=== PATIENT | male | born 1965 | race Caucasian/White ===

== ENCOUNTER 2016-12-29 05:32 | Inpatient (IN) | payer BC ==
[2016-12-21 13:42] LABS: URINE BILIRUBIN NEGATIVE (Negative); URINE BLOOD NEGATIVE (Negative); URINE COLOR YELLOW; URINE GLUCOSE-RANDOM* NEGATIVE (Negative); URINE KETONES TRACE (Negative); URINE LEUKOCYTES-REFLEX NEGATIVE (Negative); URINE PROTEIN (DIPSTICK) NEGATIVE (Negative); URINE SPECIFIC GRAVITY 1.025 (1.003-1.035); URINE UROBILINOGEN 0.2 E.U./dl (0.2-1.0)
[2016-12-21 13:44] LABS: HEMATOCRIT 49.4 % (42.0-52.0); HEMOGLOBIN 16.8 gm/dL (14.0-18.0); MCH 30.8 pg (26.0-34.0); MCV 90.4 fL (80.0-100.0); RBC 5.46 mil/uL (4.50-6.00); RDW 14.3 % (10.5-14.5); WBC 7.3 thou/uL (4.0-11.0)
[2016-12-21 13:53] LABS: ALBUMIN 3.9 g/dL (3.4-5.0); CALCIUM 9.3 mg/dL (8.5-10.1); CREATININE 0.9 mg/dL (0.7-1.3); POTASSIUM 4.6 mmol/L (3.5-5.1)
[2016-12-21 13:57] LABS: PROTIME 10.4 Seconds (9.3-11.4)
[2016-12-29] VITALS (10 sets, daily range): BP systolic 125–158; BP diastolic 71–94
[~2016-12-29] VITALS: Ht 193 cm; Wt 121.6 kg
--- NOTE | ~2016-12-29 | O ---
[facility] [place] [address] OPERATIVE REPORT Name: ROMELIA VICENTE Room #: 150-9 ADM IN M.R.#: [id number] Admission: 12/29/16 Attend Phys: John Newton MD Discharge: Date of : 67 Report #: [id number] THIS REPORT FOR: //name// CC: John Newton DATE OF SERVICE: 12/29/2016 PREOPERATIVE DIAGNOSIS: Right knee degenerative joint disease, severe. Obesity, BMI 33.47. POSTOPERATIVE DIAGNOSIS: Right knee degenerative joint disease, severe. Obesity, BMI 33.47. PROCEDURE: Right total knee arthroplasty. SURGEON: John Newton MD. STILL OPERATOR: MONSERRAT Mays. INDICATIONS FOR STILL OPERATOR: During the course of operation, extensive manipulation, retraction and limb positioning were required. This was especially important due to the patient's size, which did require additional time. ANESTHETIC: General. INDICATIONS: See hospital H and P. IMPLANTS UTILIZED: Used a [employer] knee system. We used a cruciate retaining press-fit femur, size 8. We used a Rosalba 2 tibial base plate with an 11 mm spacer and a 38 mm patella. DESCRIPTION OF PROCEDURE: After adequate general anesthesia had been obtained, the patient's right lower extremity was prepped and draped in the usual meticulous sterile fashion. Limb was exsanguinated with gravity, tourniquet inflated to 350 torr. Anterior midline incision was made, subQ divided sharply. Hemostasis obtained with electrocautery. Medial parapatellar incision was made. Infrapatellar fat pad excised. We released the capsule at the level of joint only medially for exposure. The knee was flexed, the drill was used to drill the distal femur. This hole was enlarged, irrigated, suctioned, and the intramedullary guide placed the full length of the femur, the 7 degree valgus matched the patient's anatomy. We placed it in appropriate rotation and pinned it into position, and the distal femoral cut was made. We did elect to take additional 2 mm due to the patient's flexion contracture. We then measured the [facility] [address] [place] [address] OPERATIVE REPORT Name: ROMELIA VICENTE Room #: 150-9 ADM IN M.R.#: [id number] Admission: 12/29/16 Attend Phys: John Newton MD Discharge: Date of : 67 Report #: [id number] femur, size 8 was appropriate size. We marked the distal femur, impacted the cutting guide into place and the anterior, posterior and chamfer cuts were made. Rongeur was used to remove additional osteophytes. At this time, the ACL was transected, tibia translated anteriorly, menisci were excised. Drill was used to drill central portion of the tibia. This hole was enlarged, irrigated, suctioned, and the intramedullary guide placed the full length of the tibia. Proximal tibial cutting guide placed at appropriate height. Proximal tibia cut was made. 5 tray gave us the best coverage on the tibia. We then placed trial components in position with 11 spacer, we had the best flexion and extension gap. Patella was measured, cutting guide clamped into place, patellar cut was made. PEG holes were drilled, trial component put in position. It tracked normally. The knee was taken through several cycles of flexion and extension. Tibial tray rotation was marked. We then punched the distal femur and then did the tibial keel cut. We then irrigated the knee copiously with pulse lavage and antibiotic irrigation. The cement was vacuum mixed, and when it reached the appropriate consistency, the knee was thoroughly dried, the tibial tray was cemented in place. Excess cement was removed. The spacer was impacted in place and the femur impacted in place. The knee was taken out of the 0 degrees flexion, uniform compression placed across components. Patellar button was then cemented into place and again excess cement was removed. We allowed the cement to fully cure. When it had done so, we irrigated, dried thoroughly and inspected. Drains were placed superolaterally both deep and superficial. The retinacular layer closed with combination of interrupted [id number] #1 Vicryl as well as running #1 Tevdek. SubQ closed with 2-0 Monocryl, skin closed with danika. Sterile compressive dressing applied. Tourniquet deflated. By: [phone] John Newton MD /nt
[~2016-12-29 05:32] MED LIST: ALLOPURINOL 30300 M1 PO; ALLOPURINOL PO; DEPO-TESTO100 MG/1 M IM; IBUPROFEN 200200 M1 PO; IBUPROFEN 800800 M1 PO; MITIGARE0.6 MG PO; STEROID SHOT IM; SYNTHROID75 MCG PO
[2016-12-29 11:02] LABS: PROTIME 10.3 Seconds (9.3-11.4)
[2016-12-30 00:33] VITALS: BP 124/66
[2016-12-30 03:03] VITALS: BP 133/74
[2016-12-30 06:24] LABS: HEMATOCRIT 43.5 % (42.0-52.0); HEMOGLOBIN 14.5 gm/dL (14.0-18.0); MCH 30.2 pg (26.0-34.0); MCHC 33.3 g/dL (28.0-37.0); MCV 90.7 fL (80.0-100.0); RBC 4.8 mil/uL (4.50-6.00); RDW 14.1 % (10.5-14.5); WBC 10.8 thou/uL (4.0-11.0)
[2016-12-30 08:00] VITALS: BP 135/73
[2016-12-30 15:51] VITALS: BP 136/76
[2016-12-30 19:56] VITALS: BP 153/87
[2016-12-31 03:32] LABS: HEMATOCRIT 41.8 % (42.0-52.0); MCH 30.5 pg (26.0-34.0); MCHC 33.5 g/dL (28.0-37.0); RBC 4.59 mil/uL (4.50-6.00); RDW 14.2 % (10.5-14.5); WBC 9.8 thou/uL (4.0-11.0)
[2016-12-31 03:35] VITALS: BP 145/75
[2016-12-31 03:42] LABS: CALCIUM 8.1 mg/dL (8.5-10.1); MAGNESIUM 1.8 mg/dL (1.8-2.4); POTASSIUM 4.1 mmol/L (3.5-5.1)
[2016-12-31] MEDS ORDERED: XARELTO10 MG PO (06:43)
[2016-12-31] MEDS ORDERED: PERCOCET 10-321 EACH PO (06:43)
[2016-12-31] MEDS ORDERED: MS CONTIN15 MG PO (06:43)
[2016-12-31] MEDS ORDERED: CELEBREX 200 M200 M1 PO (06:48)
[2016-12-31 08:31] VITALS: BP 133/71
[2016-12-31 16:00] VITALS: BP 132/64
[2016-12-31 19:20] VITALS: BP 158/71
[2017-01-01 04:01] LABS: HEMATOCRIT 40.3 % (42.0-52.0); HEMOGLOBIN 13.6 gm/dL (14.0-18.0); MCH 30.5 pg (26.0-34.0); MCHC 33.7 g/dL (28.0-37.0); MCV 90.5 fL (80.0-100.0); RBC 4.45 mil/uL (4.50-6.00); RDW 14.2 % (10.5-14.5); WBC 8.9 thou/uL (4.0-11.0)
[2017-01-01 05:57] VITALS: BP 152/82
[2017-01-01 08:26] VITALS: BP 19/71
[2017-01-01 10:07] VITALS: BP 19/71
== END 2017-01-01 11:50 | disposition home or self-care (01) | DRG 470 ==
LOC: TBA 05:32 → 4N 05:32 → PRE 12:19 → ENTRNSPT 01-01 11:44 → EDTRNSPTSTS 01-01 11:48 → 4N 01-01 11:50
PROVIDERS: Nurse Practitioner Family; Orthopaedic Surgery; Radiology Diagnostic Radiology
PROC: 0SRC0JA Replacement of Right Knee Joint with Synthetic Substitute, Uncemented, Open Approach (ICD-10-PCS; principal; 2016-12-29)
DX: M17.11 Unilateral primary osteoarthritis, right knee (principal); M10.9 Gout, unspecified; E03.9 Hypothyroidism, unspecified; G47.00 Insomnia, unspecified; Z79.899 Other long term (current) drug therapy
CPT/HCPCS: 10790; 50010; 50101; 50415; 50954; 51130; 51225; 51320; 51412; 51771; 52001; 53078; 53364; 56525; 56527; 62110; 62900; 64043; 70005

== ENCOUNTER → 2017-01-04 | Outpatient (CLI) | payer BC ==
[~2017-01-04] MED LIST changes: +CELEBREX 200 M200 M1 PO; +MS CONTIN15 MG PO; +PERCOCET 10-321 EACH PO; +XARELTO10 MG PO
== END ==
LOC: ULTRA 14:01
DX: M79.604 Pain in right leg (principal); M79.89 Other specified soft tissue disorders; Z96.651 Presence of right artificial knee joint